=== PATIENT | male | born 1940 | race Caucasian/White ===

== ENCOUNTER → 2016-06-01 | Outpatient (CLI) | payer OTHER ==
[~2016-06-01] MED LIST: ADVIN25/60 INH; ASPI81TA28 PO; CHOL1000 PO; CLBCRM30 EXT; CLOB-77 TOP; DOXA2TAB PO; DOXY1TAB6 PO; Doxazosin Mesylate PO; ESOM20CA PO; FINA5TAB PO; LISI-725 PO; LSN25 PO; METH-589 PO; MOME200A INH; NAPR1TAB9 PO; OXYC-57 PO; PANT40TA PO; PRAV80TA2 PO; ROSU20TA PO; TAMS0.4C38 PO
[2016-06-01 15:20] VITALS: BP 137/82; PULSE 68; TEMP 36.6; O2SAT 97
== END | disposition home or self-care (01) ==
LOC: C.ONC 14:24
PROVIDERS: ATTEND Radiology Radiation Oncology
DX: C61 Malignant neoplasm of prostate (principal)

== ENCOUNTER → 2016-07-11 | Outpatient (CLI) | payer OTHER ==
[~2016-07-11] MED LIST changes: -CLOB-77 TOP; -Doxazosin Mesylate PO
--- NOTE | 2016-07-11 07:59 | DIAGNOSTIC IMAGING REPORT ---
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 COMPARISON: 02/07/2016 FINDINGS: Stable postoperative changes of a left lower lobectomy. No evidence for residual or recurrent disease. Lungs currently are considered clear. No significant parenchymal nodular pathology. Limited evaluation the upper abdomen is unremarkable. Degenerative changes of the thoracic spine are noted. IMPRESSION: Stable postoperative evaluation of the chest. No evidence for new interval or recurrent disease Electronically signed by: Aden Hammer M.D. 07/11/2016 7:57 AM Dictated Date/Time: 07/11/2016 7:54 AM
== END | disposition home or self-care (01) ==
LOC: C.CTS 07:30
PROVIDERS: ATTEND Internal Medicine Pulmonary Disease
DX: C34.90 Malignant neoplasm of unspecified part of unspecified bronchus or lung (principal)

== ENCOUNTER → 2016-10-27 | Outpatient (CLI) | payer OTHER ==
[~2016-10-27] MED LIST changes: +CLR10 PO; -LSN25 PO; +POLYSOL4 OP; +calcium PO
[2016-10-27 12:51] LABS: THYROID STIMULATING HORMONE 1.43 uIu/ml (0.300-4.500)
== END | disposition home or self-care (01) ==
LOC: C.LAB 09:59
PROVIDERS: ATTEND Internal Medicine Endocrinology, Diabetes & Metabolism
DX: E05.90 Thyrotoxicosis, unspecified without thyrotoxic crisis or storm (principal)

== ENCOUNTER → 2016-10-31 | Outpatient (CLI) | payer OTHER ==
[~2016-10-31] MED LIST changes: -CLR10 PO; -POLYSOL4 OP; -calcium PO
[2016-10-31 14:32] VITALS: BP 153/75; PULSE 73; TEMP 37.3; O2SAT 95
--- NOTE | 2016-10-31 16:10 | Radiation Oncology Follow-Up ---
Radiation Oncology Follow-Up Date of Visit Oct 31, 2016. Reason For Visit One-month follow-up in cancer survivorship care plan Radiation Completion Date Hypo - 09/28/16 Diagnosis (1) Prostate cancer Status: Acute Onset Date: 03/15/2016 Location: right lobe of the prostate Histology Subtype: adenocarcinoma Stage: ll Permanent Comment: History of benign prostatic hypertrophy on Avodart Rising PSA to 2.310 which equals 4.6 to Status post ultrasound-guided biopsies 03/15/2016 [place] 4+3 Prostate volume 45.5 Prostate density 0.101 Status post completion of radiation therapy 09/28/2016. He received 7000 cGy utilizing hypo-fractionation Last Edited By: Peg Vann on October 11, 2016 10:14 History of Present Illness Mr. Leonardo is a 75-year-old male who is without a family history of prostate cancer. He has been followed with screening prostate-specific antigens. In September 2009 his prostate-specific antigen was elevated at 4.47. This was repeated in November 2009 at 3.48. The patient was subsequently started on initially Avodart and more recently finasteride. His prostate-specific antigen has responded as anticipated. In May 2010 prostate-specific antigen was 1.49. In November 2010 prostate-specific antigen was 1.04. In September 2011 prostate-specific antigen was 1.32 and in December 2012 1.36. His prostate-specific antigen in September 2013 was 1.59 and in December 2014 1.99. His most recent prostate-specific antigen on 12/13/2015 was 2.31. Since starting his Avodart/finasteride all subsequent prostate-specific antigens needed to be doubled. His prostate-specific antigen therefore went from 4.0 in December 2014 to 4.6 in December 2015. Because of this change Dr. Mccurdy discussed ultrasound-guided biopsies with the patient. During this time the patient has had additional medical issues. He is been diagnosed with a superficial skin lesion that according to the patient is rare and treated with phototherapy. He is under the care of Dr. Gomez from [facility] and is followed every 4 months. He has been receiving therapy for the past several years with his latest treatment in October of this year. The rash initially developed over the groin and abdomen but could appear anywhere. He has had no recurrence of rash since his latest treatment. Patient was also noted to have a lung lesion initially identified on scans in 2011. On April 18, 2012 the patient was noted to have a nodular density lateral to the left lower lobe pulmonary artery measuring 5-6 mm that was stable. In November 2014 a left lower lobe nodule was noted measuring 2.2 cm which had increased compared to prior studies from 2011. A bronchoscopy was performed on 11/24/2014. No endobronchial mass was noted. Navigational bronchoscopy with biopsies of the left lower lobe lung nodule was performed. Bronchial brushings were benign. Case: [id number]. Bronchial washings were benign. Case: [id number]. Transbronchial biopsies of the left lower lobe lesion was also benign. Case: [id number]. Despite the negative biopsy with evidence of an enlarging lesion surgical removal was recommended. Dr. Ciro falcon performed a left video-assisted thorascopic surgery with a wedge resection of a left lower lobe lesion and subsequent left thoracotomy with left lower lobectomy and node dissection. This was performed on 12/22/2014. This revealed a poorly differentiated malignant neoplasm located within the wedge biopsy and subsequent wedge resection. The subsequent left lower lobectomy showed no residual tumor. 6 left level IX lymph nodes were benign and 5 lobar lymph nodes were benign. Aortopulmonary window excision revealed 5 benign lymph nodes. Case: [id number]. This case was sent for pathologic review the [facility]. 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 Pathology [id number]. Given the pathologic findings and histologic findings no adjuvant chemotherapy or radiation was recommended. Patient however was followed. A staging PET scan was performed on 01/25/2015. This showed a small left pleural effusion with mild FDG uptake favoring postoperative change. Interval left lower lobectomy noted with no FDG avid or suspicious pulmonary nodules. FDG uptake associated with left posterior chest wall consistent with postoperative changes. 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 Subsequent follow-up CT scans in July 2015 and more recently on 02/07/2016 shows no evidence of recurrent disease. Patient did agree with recommendation for ultrasound-guided prostate biopsies and was performed on 03/15/2016. A total of 14 biopsies were taken. All biopsies were benign with the exception of the right mid gland were one of 2 biopsies were positive for an adenocarcinoma [place] grade 4+3 involving 15% of the core tissue sample with no perineural invasion identified. Case: [id number]. The patient is reviewing his treatment options but would like to consider the possibility of active surveillance. Dr. Mccurdy was kind enough to ask us to see the patient to discuss treatment options with this patient. It is for this reason the patient is seen in referral. He completed radiation therapy D the 2016. He received 7000 cGy utilizing hypo-fractionation. Interim History He's been doing well over the past month. He gives an AUA score of 8. His score at the end of treatment was 12. He does have Flomax. He is not taking it on a regular basis. He states he takes this whenever he knows he is going to be traveling or staying out for a long period of time. She also continues on his Avodart. He stated he plans to discuss the Avodart with Dr. Mccurdy at his next visit in November. He completed and expanded prostate cancer index composite for clinical practice and gave a score of one of 12 in urinary incontinence symptoms. He gave a score of 4 of 12 urinary irritation symptoms. He gave a score of 0 of 12 and bowel symptoms. He gave a score of 9 of 12 and sexual symptoms. He gave a score of one of 12) hormonal vitality symptoms. His total was 15 of 60. He stated he had an ultrasound a checkup in his previous stent placement. He has a history of abdominal aortic aneurysm. He stated that the building energy retrofit technician told him his heart was irregular. Allergies Coded Allergies: Adhesives (Verified Allergy, Mild, RASH, 02/16/15) Home Medications Scheduled Aspirin (Aspirin Ec), 81 MG PO DAILY Cholecalciferol (Vitamin D3), 1 TAB PO QAM Clobetasol Propionate (Clobetasol Propionate Cream 0.05%), 1 APPLN EXT DAILY Doxazosin Mesylate (Cardura), 3 MG PO HS Doxycycline Hyclate (Doxycycline Hyclate), 50 MG PO QAM Esomeprazole Magnesium (Nexium), 20 MG PO BID Finasteride (Proscar), 1 TAB PO HS Lisinopril (Zestril), 10 MG PO DAILY Methimazole (Methimazole ), 5 MG PO QAM Mometasone Furoate-Formoterol (Dulera 200/5 Mcg), 2 PUFFS INH BID Naproxen (Aleve), 220 MG PO BID Pravastatin Sodium (Pravastatin Sodium), 1 TAB PO HS Review of Systems Gastrointestinal: Symptoms: WNL Oral: Symptoms: No Problems Respiratory: Symptoms: WNL, SOB With Exertion Urinary: Symptoms: WNL, Nocturia Comments: Proscar, Nocturia x 2, freq q 1-2hr daily, Urgency, See AUA Skin: Symptoms: No Problems Physical Exam Vital Signs Date Time Temp Pulse Resp B/P (MAP) Pulse Ox O2 Delivery O2 Flow Rate FiO2 10/31/16 14:32 37.3 73 16 153/75 95 Fatigue: None General Appearance: no apparent distress Eyes: normal inspection, EOMI ENT: normal ENT inspection, hearing grossly normal Respiratory/Chest: lungs clear, no respiratory distress, no accessory muscle use Cardiovascular: regular rate, rhythm, no gallop, no murmur Extremities: no pedal edema Neurologic/Psychiatric: no motor/sensory deficits, alert, normal mood/affect Skin: warm/dry Laboratory Studies Test 10/27/16 10:02 10/31/16 14:48 Thyroid Stimulating Hormone (TSH) 1.430 uIu/ml (0.300-4.500) Free Thyroxine 0.95 ng/dl (0.80-1.60) Prostate Specific Antigen 1.560 ng/ml (0.000-4.000) Assessment & Plan Plan: A PSA was drawn today. He was notified as the results. He'll keep his appointment with Dr. Mccurdy in November. We discussed the episode of irregular heartbeat. He is seeing Dr. Donnelly next week. I recommended that the results of his test he discussed. If there was an irregularity this would need to be followed up by his undercover cop. Today his heart was regular. He is going to discuss the Avodart with Dr. Mccurdy. He is not taking the Flomax on a regular basis. We asked him to return to our office in 6 months. Today we completed a cancer survivorship care plan. A copy of the document was given to the patient. Total Time In Follow-Up I spent 20 minutes speaking to the patient and performing examination. I spent 20 minutes reviewing information, preparing the survivorship document, and completing this note. Copy To Reji Mccurdy M.D.; Gustavo Holland, DO; Filomena Fishman C.R.N.Marlen.; Andrés Donnelly M.D.
== END | disposition home or self-care (01) ==
LOC: C.ONC 14:27
PROVIDERS: ATTEND Physician Assistant Medical
DX: Z08 Encounter for follow-up examination after completed treatment for malignant neoplasm (principal); Z92.3 Personal history of irradiation; Z85.46 Personal history of malignant neoplasm of prostate

== ENCOUNTER → 2017-01-11 | Day surgery (SDC) | payer OTHER ==
--- NOTE | 2017-01-10 11:49 | DIAGNOSTIC IMAGING REPORT ---
CHEST 2 VIEWS ROUTINE HISTORY: 76 years-old Male K40.90 Right inguinal hernia COMPARISON: Portable chest radiograph 12/25/2014, CT chest 07/11/2016 TECHNIQUE: Frontal and lateral views of the chest FINDINGS: Cardiac silhouette is within normal limits. Post surgical changes are again seen compatible with patient history of prior left lower lobectomy. There is atherosclerosis of the aorta without pneumothorax, pleural effusion or focal airspace consolidation. The bones are grossly intact. IMPRESSION: 1. No acute cardiopulmonary process. 2. Post surgical changes compatible with patient history of prior left lower lobectomy. The above report was generated using voice recognition software. It may contain grammatical, syntax or spelling errors. Electronically signed by: Juan Howe M.D. 01/10/2017 11:48 AM Dictated Date/Time: 01/10/2017 11:47 AM
[2017-01-10 12:15] LABS: BASO % 0.1 %; BASO ABS # 0.01 K/uL (0-0.2); COMPLETE YES; EOS % 1.1 %; HEMATOCRIT 39.4 % (42-52); IG% 0.4 %; LYMPH % 9.3 %; LYMPH ABS # 0.66 K/uL (1.2-3.4); MEAN CELL VOLUME 94.3 fL (80-100); MEAN CORPUSCULAR HEMOGLOBIN 30.9 pg (25-34); MEAN CORPUSCULAR HGB CONC 32.7 g/dl (32-36); MEAN PLATELET VOLUME 9.2 fL (7.4-10.4); NEUT % 78.1 %; PLATELET COUNT 206 K/uL (130-400); RED BLOOD COUNT 4.18 M/uL (4.7-6.1); WHITE BLOOD COUNT 7.06 K/uL (4.8-10.8)
[2017-01-10 13:29] LABS: BLOOD UREA NITROGEN 15 mg/dl (7-18); BUN/CREATININE RATIO 16.2 (10-20); CALCIUM 9.4 mg/dl (8.5-10.1); CARBON DIOXIDE 30 mmol/L (21-32); CHLORIDE 105 mmol/L (98-107); CREATININE 0.94 mg/dl (0.60-1.40); GLUCOSE 95 mg/dl (70-99); SODIUM 141 mmol/L (136-145)
[~2017-01-11] VITALS: Ht 182.9 cm; Wt 88.0 kg
[~2017-01-11] MED LIST changes: +ATROPINE SULFATE 0.1 MG/ML 5ML SYR IV PRN; +BACITRACIN 50000 UNIT VIAL ONE; +BUPIVACAINE 0.5 % 5 MG/1 ML MPF 30ML VIAL ONE; +DEXAMETHASONE SOD INJ 4 MG/ML VIAL ONE; +EpHEDrine SULFATE INJ 50 MG/ML AMP IV PRN; +FENTANYL CITRATE INJ 50 MCG/1 ML 2 ML VIAL IV PRN; +FENTANYL CITRATE INJ 50 MCG/1 ML 2 ML VIAL ONE; +FLUMAZENIL 0.1 MG/1 ML 10 ML VIAL IV PRN; +HYDROmorphone INJ 2 MG/ML SYR/VIAL IV PRN; +LABETALOL HCL IV 5 MG/ML 20ML IV PRN; +LACTATED RINGER'S 1000ML 1,000 ML IV SCH; +LIDOCAINE HCL 2% 2 ML VIAL (20MG/ML) ONE; +MEPERIDINE HCL 25 MG/ML CARP IV PRN; +MIDAZOLAM HCL 1 MG/ML 2ML VIAL ONE; +NALOXONE HCL 0.4 MG/1 ML VIAL/CARP IV PRN; +ONDANSETRON INJ 2 MG/ML 2 ML VIAL IV PRN; +OXYCODONE/ACETAMINOPHEN 5-325 TAB PO PRN; +PHENYLEPHRINE 100MCG/ML 5ML SYR IV PRN; +PROPOFOL IV EMULSION 10 MG/ML 20 ML VIAL IV ONE; +SODIUM CHLORIDE 0.9% 1000ML 1,000 ML IV SCH
[2017-01-11 05:35] VITALS: BP 184/77; PULSE 69; TEMP 36.8; O2SAT 95; Ht 182.9 cm; Wt 88.0 kg
--- NOTE | 2017-01-11 06:28 | History & Physical Bridge Note ---
H&P Re-Evaluation Bridge Note: I have examined the patient, reviewed the History & Physical and in the interval since the performance of the History & Physical I have noted the following changes of clinical significance: No changes noted pt marked bedside nurses report lump posterior right chest feels like a soft tissue mass lipoma? scheduled for f/u ct scan chest soon
--- NOTE | 2017-01-11 08:12 | Discharge Instructions ---
Discharge Instructions Date of Service Jan 11, 2017. Admission Reason for Admission: Right Inguinal Hernia Discharge Discharge Diagnosis / Problem: Right Inguinal Hernia Discharge Goals Goal(s): Decrease discomfort, Improve function Activity Recommendations Activity Limitations: as noted below Lifting Limitations: no more than 10 pounds Exercise/Sports Limitations: until after follow-up appointment May Resume Sexual Activity: after follow-up appointment Shower/Bathe: tomorrow Driving or Machine Use: resume 3 days after discharge . Instructions / Follow-Up Instructions / Follow-Up Please follow-up with nursing in 1 week to have your rashaun removed. Call the office at [phone] to make an appointment if you do not have one already. It is recommended to place an ice bag on the surgical area for the next 24 hours. This will help with swelling. Please do not place the bag of ice directly on the surgical incision. Please call the office with any questions or concerns. Current Hospital Diet Patient's current hospital diet: Discharge Diet Recommended Diet: Regular Diet Procedures Procedures Performed: Open Right Inguinal Hernia Repair with Marlex Mesh Pending Studies Studies pending at discharge: yes List of pending studies: Pathology report. Medical Emergencies . Who to Call and When: Medical Emergencies: If at any time you feel your situation is an emergency, please call 911 immediately. . Non-Emergent Contact Non-Emergency issues call your: Primary Care Provider, Surgeon Call Non-Emergent contact if: temperature is above 101.5, your pain is not controlled, wound has increased drainage, wound has increased redness . "Provider Documentation" section prepared by Edwina Merrill. . VTE Core Measure Inpt VTE Proph given/why not?: SCD's [place] Drug Monitoring Program Search Results: patient reviewed within database, no issues identified
--- NOTE | 2017-01-11 08:13 | [facility] Operative Report ---
Operative Report Operative Date Jan 11, 2017. Pre-Operative Diagnosis Right Inguinal Hernia Post-Operative Diagnosis Same as preoperative(indirect and lipoma cord) Procedure(s) Performed Open Right Inguinal Hernia Repair with Martamie Mesh Surgeon Dr. Carlton Mckeon Nuclear Engineering Technician Surgeon(s) Tanner Merrill PA-C Estimated Blood Loss 1ml Findings indirect hernia and lipoma cord Specimens A.) Lipoma of the Cord, Hernia Sac Indications pain I attest to the content of the Intraoperative Record and any orders documented therein. Any exceptions are noted below.
--- NOTE | 2017-01-11 08:39 | OPERATIVE REPORT ---
DATE OF OPERATION: 01/11/2017 PREOPERATIVE DIAGNOSIS: Right inguinal hernia. POSTOPERATIVE DIAGNOSIS: Right indirect inguinal hernia, lipoma of the cord. PROCEDURE: Open repair, right indirect hernia with Marlex mesh tension free and excision lipoma of the cord. SURGEON: Dr. Mckeon. OPERATION AND FINDINGS: SUMMARY: The patient was brought into the operating room theater under general LMA anesthesia. The right lower quadrant prepped Betadine scrubbing solution and properly draped. Systemic antibiotics was given. 1% Xylocaine with epinephrine was used to infiltrate 2 fingerbreadths medial anterior superior iliac crest. An incision was made parallel to the inguinal ligament, deepened through subcutaneous tissue onto the external oblique. A few small vessels in the subQ were Bovied. The patient had some edema in the subcutaneous tissue in that area. Once we got onto the external oblique more local was used. External oblique was opened and incised along the course of its fibers, elevated, excised to the external ring. The nerve identified and avoided by placing with help of hemostats and retracted superiorly. At this point, the cord and it structures were elevated. The patient was identified to have a direct weakness, but no real direct hernia per se. The cord was placed over a Michael drain. We dissected out and identified the hernial sac which we opened and placed a finger inside. The internal ring and appeared adequate. We ligated the hernial sac with 3-0 silk and resected. The patient also had a lipoma of the cord, which we ligated 2-0 silk and resected. We brought a sheet of Marlex mesh and onlaid it with 2-0 Prolene to the symphysis pubis, shelving portion of the inguinal ligament above. We placed it on the conjoined tendon, although the patient had very weak tissue overall. We made sure we placed it significantly underneath the external oblique fascia. The internal ring was reconstructed placing the nerve along the cord structure. Once the internal ring was constructed it could only accommodate the tip of a hemostat. The wound was checked for hemostasis and appeared satisfactory. The external oblique closed with 3-0 interrupted silk, 3-0 Dexon subcutaneously, rashaun for skin edges. Dressing was applied. The procedure was tolerated well by the patient. Estimated blood loss 1.5 mL. The patient was taken to recovery room in good condition. I attest to the content of the Intraoperative Record and any orders documented therein. Any exception s are noted below.
--- NOTE | 2017-01-11 09:07 | Anesthesiology Progress Note ---
Anesthesia Post Op Note Date & Time Jan 11, 2017 at 09:07 Vital Signs Pain Intensity: 0 Vital Signs Past 12 Hours Date Time Temp Pulse Resp B/P (MAP) Pulse Ox O2 Delivery O2 Flow Rate FiO2 01/11/17 09:00 65 16 157/64 99 Nasal Cannula 2 01/11/17 08:50 67 16 156/78 99 Nasal Cannula 2 01/11/17 08:40 36.4 66 16 153/70 99 Nasal Cannula 2 01/11/17 08:30 72 16 152/63 98 Nasal Cannula 2 01/11/17 08:20 68 16 162/91 98 Oxymask 5 01/11/17 08:10 68 16 150/81 98 Oxymask 5 01/11/17 08:06 36.3 74 18 157/74 98 Oxymask 5 01/11/17 05:35 36.8 69 20 184/77 (112) 95 Room Air Notes Mental Status: alert / awake / arousable, participated in evaluation Pt Amnestic to Procedure: Yes Nausea / Vomiting: adequately controlled Pain: adequately controlled Airway Patency, RR, SpO2: stable & adequate BP & HR: stable & adequate Hydration State: stable & adequate Anesthetic Complications: no major complications apparent
[2017-01-11 09:10] VITALS: BP 190/84; PULSE 70; TEMP 36.7; O2SAT 96
[2017-01-11 09:45] VITALS: BP 174/81; PULSE 72; TEMP 36.7; O2SAT 96
== END | disposition home or self-care (01) ==
LOC: C.ACU 05:00
PROVIDERS: ATTEND Surgery
DX: K40.90 Unilateral inguinal hernia, without obstruction or gangrene, not specified as recurrent (principal); D17.6 Benign lipomatous neoplasm of spermatic cord; I25.10 Atherosclerotic heart disease of native coronary artery without angina pectoris; N40.1 Benign prostatic hyperplasia with lower urinary tract symptoms; N13.8 Other obstructive and reflux uropathy; J44.9 Chronic obstructive pulmonary disease, unspecified; I65.29 Occlusion and stenosis of unspecified carotid artery; E78.00 Pure hypercholesterolemia, unspecified; Z85.828 Personal history of other malignant neoplasm of skin; E05.90 Thyrotoxicosis, unspecified without thyrotoxic crisis or storm; M51.16 Intervertebral disc disorders with radiculopathy, lumbar region; C34.90 Malignant neoplasm of unspecified part of unspecified bronchus or lung; C61 Malignant neoplasm of prostate; Z87.891 Personal history of nicotine dependence; Z79.82 Long term (current) use of aspirin; Z79.899 Other long term (current) drug therapy

== ENCOUNTER → 2017-01-16 | Outpatient (CLI) | payer OTHER ==
[~2017-01-16] MED LIST changes: -ATROPINE SULFATE 0.1 MG/ML 5ML SYR IV PRN; -BACITRACIN 50000 UNIT VIAL ONE; -BUPIVACAINE 0.5 % 5 MG/1 ML MPF 30ML VIAL ONE; -DEXAMETHASONE SOD INJ 4 MG/ML VIAL ONE; -EpHEDrine SULFATE INJ 50 MG/ML AMP IV PRN; -FENTANYL CITRATE INJ 50 MCG/1 ML 2 ML VIAL IV PRN; -FENTANYL CITRATE INJ 50 MCG/1 ML 2 ML VIAL ONE; -FLUMAZENIL 0.1 MG/1 ML 10 ML VIAL IV PRN; -HYDROmorphone INJ 2 MG/ML SYR/VIAL IV PRN; -LABETALOL HCL IV 5 MG/ML 20ML IV PRN; -LACTATED RINGER'S 1000ML 1,000 ML IV SCH; -LIDOCAINE HCL 2% 2 ML VIAL (20MG/ML) ONE; -MEPERIDINE HCL 25 MG/ML CARP IV PRN; -MIDAZOLAM HCL 1 MG/ML 2ML VIAL ONE; -MOME200A INH; -NALOXONE HCL 0.4 MG/1 ML VIAL/CARP IV PRN; -ONDANSETRON INJ 2 MG/ML 2 ML VIAL IV PRN; -OXYC-57 PO; -OXYCODONE/ACETAMINOPHEN 5-325 TAB PO PRN; -PHENYLEPHRINE 100MCG/ML 5ML SYR IV PRN; -PRAV80TA2 PO; -PROPOFOL IV EMULSION 10 MG/ML 20 ML VIAL IV ONE; -SODIUM CHLORIDE 0.9% 1000ML 1,000 ML IV SCH
--- NOTE | 2017-01-16 08:14 | DIAGNOSTIC IMAGING REPORT ---
CT SCAN OF THE CHEST WITHOUT IV CONTRAST CLINICAL HISTORY: Follow-up lung cancer. COMPARISON STUDY: Chest CT scans dated 07/11/2016 and 08/04/2009. TECHNIQUE: CT scan of the thorax was performed from the thoracic inlet to the upper abdomen. Images are reviewed in the axial, sagittal, and coronal planes. IV contrast was not administered for this examination as per the referring clinician. A dose lowering technique was utilized adhering to the principles of ALARA. CT DOSE: 560.48 mGy.cm FINDINGS: Thyroid: Imaged portions of the thyroid gland are normal in size and attenuation. Thoracic aorta: There is atherosclerotic calcification of the thoracic aorta, which is normal in caliber and demonstrates standard 3-vessel arch anatomy. Heart: The heart is enlarged and without pericardial effusion. The coronary arteries are densely calcified. The main pulmonary arteries are dilated suggesting pulmonary artery hypertension. Lungs and pleural spaces: Mild emphysema is observed. There are postoperative changes and volume loss from left lower lobe resection. There is compensatory hyperinflation of the right lung. No pleural effusion is identified. There are patchy nodular opacities seen throughout the left lung. The right lung is clear. The trachea and central airways are clear. Mediastinum: There is no mediastinal lymphadenopathy. Teri: Not well assessed without IV contrast. Axillae: There is no axillary lymphadenopathy. Upper abdomen: An aortic stent graft is partially visualized. No adrenal lesion is seen. Skeletal structures: The skeletal structures are osteopenic. Degenerative change and hyperkyphosis are noted in the thoracic spine. Postoperative change is noted in the left sided ribs. No lytic or blastic bony lesions are seen. Soft tissues: There is a new 2.6 x 4.2 cm hyperdense lesion seen in the right paraspinous musculature on axial image #233. This is located at the level of T10-T11. IMPRESSION: 1. Cardiomegaly and emphysema. 2. There are postoperative changes from left lower lobe resection. 3. There are patchy nodular opacities scattered throughout the left lung. These were not seen on 07/11/2016 and likely represent a mild infectious/inflammatory pneumonitis. Clinical correlation will be required. 3 month follow-up is recommended to document resolution. 4. There is a new 4.2 cm hyperdense and heterogeneous lesion seen in the right paraspinous musculature at the level of T10-T11, which was not seen on 07/11/2016. Although this could potentially represent a small hematoma, metastatic disease is not excluded. Clinical correlation will be required and this should also be reassessed at follow-up. 5. Additional findings as above. Electronically signed by: Phill Stein M.D. 01/16/2017 8:13 AM Dictated Date/Time: 01/16/2017 8:01 AM
== END | disposition home or self-care (01) ==
LOC: C.CTS 07:40
PROVIDERS: ATTEND Internal Medicine Pulmonary Disease
DX: C34.90 Malignant neoplasm of unspecified part of unspecified bronchus or lung (principal); R91.1 Solitary pulmonary nodule; I51.7 Cardiomegaly; J43.9 Emphysema, unspecified; R91.8 Other nonspecific abnormal finding of lung field

== ENCOUNTER → 2017-01-19 | Outpatient (CLI) | payer OTHER ==
[2017-01-19 09:51] LABS: ESTIMATED AVERAGE GLUCOSE 114 mg/dl; HA1C FLAG Normal (Normal)
[2017-01-19 10:14] LABS: ALT/SGPT 13 U/L (12-78); AST/SGOT 12 U/L (15-37); BLOOD UREA NITROGEN 14 mg/dl (7-18); BUN/CREATININE RATIO 13.8 (10-20); CARBON DIOXIDE 30 mmol/L (21-32); CHLORIDE 106 mmol/L (98-107); CREATININE 0.99 mg/dl (0.60-1.40); GLUCOSE 105 mg/dl (70-99); POTASSIUM 3.7 mmol/L (3.5-5.1); SODIUM 140 mmol/L (136-145)
[2017-01-19 10:17] LABS: ALB/GLOB RATIO 0.9 (0.9-2); ALKALINE PHOSPHATASE 76 U/L (45-117); CHOLESTEROL 85 mg/dl (0-200); CHOLESTEROL/HDL RATIO 2.2; HDL CHOLESTEROL 39 mg/dl; LDL CHOLESTEROL CALCULATED 28 mg/dl; TRIGLYCERIDES 92 mg/dl (0-150); VERY LOW DENSITY LIPOPROT CALC 18 mg/dl
== END | disposition home or self-care (01) ==
LOC: C.LAB 09:05
PROVIDERS: ATTEND Nurse Practitioner Family
DX: E78.5 Hyperlipidemia, unspecified (principal); I10 Essential (primary) hypertension; R73.03 Prediabetes

== ENCOUNTER → 2017-01-22 | Outpatient (CLI) | payer OTHER | END | disposition home or self-care (01) | LOC: C.PATHSPEC 13:51 | PROVIDERS: ATTEND Surgery | DX: C49.6 Malignant neoplasm of connective and soft tissue of trunk, unspecified (principal) ==

== ENCOUNTER → 2017-01-31 | Outpatient (CLI) | payer OTHER ==
--- NOTE | 2017-01-31 09:26 | DIAGNOSTIC IMAGING REPORT ---
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 TECHNIQUE: PET/CT was performed from the base of the skull through the proximal thighs following the intravenous administration of 14.054 mCi of F18-FDG. Blood glucose level 115 mg/dL. The injection was performed at 6:57 AM and imaging began at 7:[address] was performed for attenuation correction purposes and anatomic localization. COMPARISON: 01/25/2015 CT DOSE (mGy.cm): The estimated cumulative dose is 1156.30. FINDINGS: Head and neck: There is no FDG-avid disease or significant lymphadenopathy in the imaged portions of the head and the neck. Chest: No axillary, mediastinal, or hilar lymphadenopathy. Mild enlargement of the heart, unchanged. Coronary artery and aortic valve calcification. No pleural or pericardial effusion. Postsurgical changes of left lower lobe resection. Minimal subpleural reticulation along the lateral lingula likely posttreatment change. No air-space disease or suspicious lung nodule. No FDG avid lesion in the chest. Abdomen and pelvis: Below the diaphragm, tracer is distributed physiologically in the gastrointestinal and genitourinary tracts. There is no significant lymphadenopathy and no FDG-avid disease. Fiducial markers noted in the prostate likely indicating prior external beam radiation treatment of prostate cancer. 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 Aortobiiliac stent graft in place for the infrarenal abdominal aortic aneurysm. The aneurysm sac now measures 4.6 cm, previously 4.2 cm. 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 Musculoskeletal: Posttraumatic deformity of the right superior and inferior pubic rami and pubic symphysis. Degenerative changes of the spine. No FDG avid osseous lesion. Hyperdense FDG avid 3.0 cm lesion in the right paraspinal musculature at the level of T10-11 (max SUV 6.5). Previously noted mild FDG activity within the chest wall musculature along the left posterolateral aspect has resolved, likely postsurgical change. Interval development of a photopenic fluid collection in the superficial soft tissues of the right lower quadrant. Subjacent mild FDG avidity of the right abdominal wall musculature (max SUV 2.7). An overlying incision site is suggested. These findings are not present on prior exam. IMPRESSION: 1. Interval development of an FDG avid intramuscular lesion in the right paraspinal musculature at the level of T10-11, consistent with progression of disease. 2. Postsurgical changes of left lower lobectomy. No lymphadenopathy or recurrent disease in the lungs. 3. Slight interval increased size of the infrarenal abdominal aortic aneurysm sac, which now measures 4.6 cm, previously 4.2 cm. 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 Aortobiiliac stent graft in place. 4. Photopenic fluid collection in the subcutaneous tissue of the right lower quadrant with subjacent mild FDG avidity of the right abdominal wall musculature may suggest interval postsurgical change. Electronically signed by: Song Beatty M.D. 01/31/2017 9:24 AM Dictated Date/Time: 01/31/2017 8:56 AM
== END | disposition home or self-care (01) ==
LOC: C.PET 06:37
PROVIDERS: ATTEND Surgery
DX: C34.90 Malignant neoplasm of unspecified part of unspecified bronchus or lung (principal); C79.9 Secondary malignant neoplasm of unspecified site

== ENCOUNTER → 2017-02-02 | Outpatient (CLI) | payer OTHER ==
[2017-02-02 09:13] VITALS: BP 110/63; PULSE 81; TEMP 36.7; O2SAT 95
--- NOTE | 2017-02-02 14:20 | Radiation Oncology Consult ---
Radiation Oncology Consult Date / Reason Feb 02, 2017. Physicians Primary Care Provider: SONYA Velez Medical Oncologist: Dr. Jona Warren Radiation Oncologist: Dr. Vamshi Warren Surgeon: Dr. Carlton Mckeon Other Providers: Dr. Andrés Mccurdy Diagnosis (1) Prostate cancer Onset Date: 03/15/2016 Permanent Comment: History of benign prostatic hypertrophy on Avodart Rising PSA to 2.310 which equals 4.6 to Status post ultrasound-guided biopsies 03/15/2016 Kayode 4+3 Prostate volume 45.5 Prostate density 0.101 Status post completion of radiation therapy 09/28/2016. He received 7000 cGy utilizing hypo-fractionation Last Edited By: Peg Vann on October 11, 2016 10:14 (2) Lesion of lung Stage: IV Permanent Comment: -CT Angio - 10/30/14 - Increase in pulmonary nodule in LLL -CT Thorax - 11/23/14 - 2.2 cm circumscribed LLL nodule -Bronchial washings/biopsies of LLL - 11/24/14 - negative -LLL Lobectomy/mediastinal LND - 12/22/14 - poorly diff spindle cell neoplasm - [id number] -PET/CT - 01/25/2015 - no evidence of distant metastatic disease -CT Thorax - 01/16/17 - new 4.2 cm lesions in right paraspinous musculature -Incisional biopsy of right posterior chest mass - 01/22/2017 - consistent with lung primary, poorly diff spindle cell neoplasm -PET/CT - FDG uptake in right posterior chest mass, otherwise negative for metastatic disease Last Edited By: Vamshi Warren on Feb 02, 2017 13:59 History of Present Illness Today, Mr. Leonardo was accompanied by his and daughter. Mr. Leonardo is a 76-year-old gentleman with a history of prostate cancer treated with radiation therapy (noted above) which completed in September 2016. 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 The patient underwent a left lower lobectomy and mediastinal lymph node dissection on 12/22/2014 (Dr. 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 Dr. Mckeon was able to achieve negative margins and there was no evidence of lymph node involvement so the patient was followed with routine observation; the patient did undergo PET/CT staging which did not reveal any evidence of distant metastatic disease. More recently, the patient did undergo a hernia repair procedure by Dr. Mckeon on 01/11/2017. Prior to his procedure, he did note a mass in his right lower back that was causing him discomfort. Following the completion of his procedure, the patient did have a CT thorax on 01/16/2017 which revealed a "a new 4.2 cm hyperdense and heterogeneous lesion seen in the right paraspinous musculature at the level of T10-T11, which was not seen on 07/11/2016. Although this could potentially represent a small hematoma, metastatic disease is not excluded." Dr. Mckeon did perform an incisional biopsy of the right mid back lesion on 01/22/2017 which revealed metastatic poorly differentiated malignant neoplasm consistent with his lung malignancy diagnosed in 2014. The patient underwent a PET/CT scan on 01/31/2017 which revealed: "IMPRESSION: 1. Interval development of an FDG avid intramuscular lesion in the right paraspinal musculature at the level of T10-11, consistent with progression of disease. 2. Postsurgical changes of left lower lobectomy. No lymphadenopathy or recurrent disease in the lungs. 3. Slight interval increased size of the infrarenal abdominal aortic aneurysm sac, which now measures 4.6 cm, previously 4.2 cm. Slight interval increased size of the left common iliac artery aneurysm , now measuring 3.3 cm, previously 3.1 cm. Aortobiiliac stent graft in place. 4. Photopenic fluid collection in the subcutaneous tissue of the right lower quadrant with subjacent mild FDG avidity of the right abdominal wall musculature may suggest interval postsurgical change." We are now seeing the patient in follow-up evaluation to discuss his previous imaging and biopsy results. He did note today during his evaluation that he does have some discomfort in his back were did have his biopsy done. He will be seeing Dr. Mckeon next Sunday. Pacemaker Hx Pacemaker: No Past History Past Medical/Surgical History: Male Genitourinary Prob., Cancer, High Cholesterol, Hypertension Social History Smoking Status: Former Smoker Hx Tobacco Use In Past Year?: Yes (Quit 2000 - Smoked for 20 yrs 3/4 pack/day ) Quit Date: Feb 18, 2001 Do You Dip or Chew Tobacco: No Hx Alcohol Use: Yes (Rarely ) Hx Substance Use : No Allergies Coded Allergies: Adhesives (Verified Allergy, Mild, RASH, 01/11/17) Latex (Verified Allergy, Unknown, UNKNOWN REACTION, 01/11/17) PER RECORDS Home Medications Scheduled Aspirin (Aspirin Ec), 81 MG PO DAILY Cholecalciferol (Vitamin D3), 1 TAB PO QAM Clobetasol Propionate (Clobetasol Propionate Cream 0.05%), 1 APPLN EXT DAILY Doxazosin Mesylate (Cardura), 3 MG PO HS Doxycycline Hyclate (Doxycycline Hyclate), 50 MG PO QAM Finasteride (Proscar), 1 TAB PO HS Fluticasone Prop/Salmeterol (Advair Diskus 250/50 60 Dose), 2 PUFFS INH BID Lisinopril (Zestril), 10 MG PO DAILY Methimazole (Methimazole ), 5 MG PO QAM Naproxen (Aleve), 220 MG PO BID Pantoprazole (Protonix), 40 MG PO DAILY Rosuvastatin Calcium (Crestor), 20 MG PO QPM Tamsulosin Hcl (Flomax), 0.4 MG PO DAILY Review of Systems Extremities: Hx Deep Vein Thrombosis: No Eyes: Hx Cataracts: Yes (starting to developing - being monitor ) Respiratory: Comments: PND past couple months with OTC med relief Physical Exam ECOG Performance Status: 0 Height: (Feet) (Inches) (Centimeters) (Meters) Weight: 188 (Pounds) 7.9 (Ounces) 85.500 (Kilograms) 34597.000 (Grams) Date Time Temp Pulse Resp B/P (MAP) Pulse Ox O2 Delivery O2 Flow Rate FiO2 02/02/17 09:13 36.7 81 16 110/63 95 General Appearance: WD/WN Head: normocephalic Eyes: normal inspection, PERRL ENT: normal ENT inspection Neck: supple, no adenopathy Respiratory/Chest: lungs clear, normal breath sounds, no respiratory distress, no accessory muscle use, + pertinent finding (Raised, erythematous mass along the right posterior thoracic chest wall. Sutures in place. No bleeding. Mild tender to palpation. 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 SEE COMMENT. COMMENT: Sections show a markedly atypical spindle cell neoplasm. The tumor appears similar to the patients malignant lung tumor resected in 2014 ([id number] ). A panel of immunoperoxidase stains was performed. The tumor cells are strongly and diffusely positive for vimentin and are focally positive for CD56. The tumor cells are negative for pankeratin, CK903, S100, smooth muscle actin and the vascular markers CD31 and CD34. This pattern of staining is similar to the previous lung tumor which was also positive for vimentin and CD56 and negative for numerous other markers. Given the pattern of staining, that tumor could not be further classified. While this tumor appears somewhat more vascular, the vascular markers are again negative. In summary, the biopsies show a malignant neoplasm that is consistent with the metastasis from the patients previous lung tumor. As noted with the lung tumor , precise classification is not possible, given the lack of differentiation. As with the lung tumor, the staining for CD56 could suggest a malignant peripheral nerve sheath tumor. An undifferentiated pleomorphic sarcoma is also possible. 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 TECHNIQUE: PET/CT was performed from the base of the skull through the proximal thighs following the intravenous administration of 14.054 mCi of F18-FDG. Blood glucose level 115 mg/dL. The injection was performed at 6:57 AM and imaging began at 7:[address] was performed for attenuation correction purposes and anatomic localization. COMPARISON: 01/25/2015 CT DOSE (mGy.cm): The estimated cumulative dose is 1156.30. FINDINGS: Head and neck: There is no FDG-avid disease or significant lymphadenopathy in the imaged portions of the head and the neck. Chest: No axillary, mediastinal, or hilar lymphadenopathy. Mild enlargement of the heart, unchanged. Coronary artery and aortic valve calcification. No pleural or pericardial effusion. Postsurgical changes of left lower lobe resection. Minimal subpleural reticulation along the lateral lingula likely posttreatment change. No air-space disease or suspicious lung nodule. No FDG avid lesion in the chest. Abdomen and pelvis: Below the diaphragm, tracer is distributed physiologically in the gastrointestinal and genitourinary tracts. There is no significant lymphadenopathy and no FDG-avid disease. Fiducial markers noted in the prostate likely indicating prior external beam radiation treatment of prostate cancer. 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 Aortobiiliac stent graft in place for the infrarenal abdominal aortic aneurysm. The aneurysm sac now measures 4.6 cm, previously 4.2 cm. 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 Musculoskeletal: Posttraumatic deformity of the right superior and inferior pubic rami and pubic symphysis. Degenerative changes of the spine. No FDG avid osseous lesion. Hyperdense FDG avid 3.0 cm lesion in the right paraspinal musculature at the level of T10-11 (max SUV 6.5). Previously noted mild FDG activity within the chest wall musculature along the left posterolateral aspect has resolved, likely postsurgical change. Interval development of a photopenic fluid collection in the superficial soft tissues of the right lower quadrant. Subjacent mild FDG avidity of the right abdominal wall musculature (max SUV 2.7). An overlying incision site is suggested. These findings are not present on prior exam. IMPRESSION: 1. Interval development of an FDG avid intramuscular lesion in the right paraspinal musculature at the level of T10-11, consistent with progression of disease. 2. Postsurgical changes of left lower lobectomy. No lymphadenopathy or recurrent disease in the lungs. 3. Slight interval increased size of the infrarenal abdominal aortic aneurysm sac, which now measures 4.6 cm, previously 4.2 cm. 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 Aortobiiliac stent graft in place. 4. Photopenic fluid collection in the subcutaneous tissue of the right lower quadrant with subjacent mild FDG avidity of the right abdominal wall musculature may suggest interval postsurgical change. CT SCAN OF THE CHEST WITHOUT IV CONTRAST - 01/16/17 CLINICAL HISTORY: Follow-up lung cancer. COMPARISON STUDY: Chest CT scans dated 07/11/2016 and 08/04/2009. TECHNIQUE: CT scan of the thorax was performed from the thoracic inlet to the upper abdomen. Images are reviewed in the axial, sagittal, and coronal planes. IV contrast was not administered for this examination as per the referring clinician. A dose lowering technique was utilized adhering to the principles of ALARA. CT DOSE: 560.48 mGy.cm FINDINGS: Thyroid: Imaged portions of the thyroid gland are normal in size and attenuation. Thoracic aorta: There is atherosclerotic calcification of the thoracic aorta, which is normal in caliber and demonstrates standard 3-vessel arch anatomy. Heart: The heart is enlarged and without pericardial effusion. The coronary arteries are densely calcified. The main pulmonary arteries are dilated suggesting pulmonary artery hypertension. Lungs and pleural spaces: Mild emphysema is observed. There are postoperative changes and volume loss from left lower lobe resection. There is compensatory hyperinflation of the right lung. No pleural effusion is identified. There are patchy nodular opacities seen throughout the left lung. The right lung is clear. The trachea and central airways are clear. Mediastinum: There is no mediastinal lymphadenopathy. Teri: Not well assessed without IV contrast. Axillae: There is no axillary lymphadenopathy. Upper abdomen: An aortic stent graft is partially visualized. No adrenal lesion is seen. Skeletal structures: The skeletal structures are osteopenic. Degenerative change and hyperkyphosis are noted in the thoracic spine. Postoperative change is noted in the left sided ribs. No lytic or blastic bony lesions are seen. Soft tissues: There is a new 2.6 x 4.2 cm hyperdense lesion seen in the right paraspinous musculature on axial image #233. This is located at the level of T10-T11. IMPRESSION: 1. Cardiomegaly and emphysema. 2. There are postoperative changes from left lower lobe resection. 3. There are patchy nodular opacities scattered throughout the left lung. These were not seen on 07/11/2016 and likely represent a mild infectious/inflammatory pneumonitis. Clinical correlation will be required. 3 month follow-up is recommended to document resolution. 4. There is a new 4.2 cm hyperdense and heterogeneous lesion seen in the right paraspinous musculature at the level of T10-T11, which was not seen on 07/11/2016. Although this could potentially represent a small hematoma, metastatic disease is not excluded. Clinical correlation will be required and this should also be reassessed at follow-up. 5. Additional findings as above. Assessment & Recommendations Mr. Leonardo is a 76-year-old male with a previous diagnosis of prostate cancer treated with radiation therapy in 2017 that is currently in remission. The patient also was previously diagnosed with a poorly differentiated malignant neoplasm involving the left lower lobe that was treated with a left lower lobectomy by Dr. Mckeon in December 2014 with no adjuvant therapy. More recently, the patient did presents with a right posterior chest wall mass that was biopsied by Dr. Mckeon 01/22/2017 which confirmed metastatic poorly differentiated malignant neoplasm consistent with his previous lung primary malignancy. The patient did undergo a PET/CT scan on 01/31/2017 which revealed no evidence of other distant metastatic disease beyond the right posterior chest wall mass. The patient wanted us to evaluate him and reviewing his pathology and imaging results. The patient is scheduled to see Dr. Mckeon next Sunday for postoperative evaluation and to review his results. I did review the pathology results and imaging results with the patient and his family. At this point, I have recommended a medical oncology consultation and the patient has requested Dr. Jona Warren from [facility]; the patient has been scheduled by our department for an appointment next Sunday. Additionally, I will have his case reviewed at our next multidisciplinary tumor board to get input from other clinicians including medical oncology, radiation oncology and surgery. I did review with the patient and his family that he does have an unusual primary lung cancer based on the pathology and imaging results and now has an unusual metastatic deposit in the right posterior chest wall; I explained to him that he truly has oligometastatic disease based on his previous PET/CT scan. With his clinical situation in mind, I explained to him that it may be potentially beneficial to be more aggressive and utilize both chemotherapy and radiation therapy however I would like to wait for the patient to see Dr. Jona Warren and have the case discussed in our multidisciplinary tumor board prior to making a final recommendation. With respect to his prostate cancer, I have recommended continued routine surveillance. The patient and his family were comfortable with this plan. I will call them after our multidisciplinary tumor board discussion on Sunday. There were encouraged to call me with any further questions or concerns. Total Time In Consultation I spent 30 minutes examining and counseling the patient. I spent 15 minutes completing this note. TOW MATE Copy To Reji Mccurdy M.D.; Jona Warren M.D.; Carlton Mckeon M.D.; Filomena Fishmna, C.R.N.P.; Andrés Donnelly M.D.
== END | disposition home or self-care (01) ==
LOC: C.ONC 09:52
PROVIDERS: ATTEND Physician Assistant Medical
DX: C61 Malignant neoplasm of prostate (principal)

== ENCOUNTER → 2017-04-18 | Outpatient (CLI) | payer OTHER ==
[~2017-04-18] MED LIST changes: +CLR10 PO; -ESOM20CA PO; -FINA5TAB PO; +POLYSOL4 OP; +calcium PO
--- NOTE | 2017-04-18 10:06 | DIAGNOSTIC IMAGING REPORT ---
(CHEST) THORAX WITHOUT CT DOSE: 348.02 mGy.cm CLINICAL HISTORY: 76 years-old Male with C34.90. Malignant neoplasm of bronchus. Follow-up exam. Prior left lower lobectomy TECHNIQUE: Multiaxial CT images of the chest were performed without contrast. A dose lowering technique was utilized adhering to the principles of ALARA. COMPARISON: MRI chest 02/20/2017, PET CT 01/31/2017, chest CT 01/16/2017. FINDINGS: Mildly heterogeneous thyroid without dominant nodule identified. Evaluation for adenopathy is limited without use of contrast. No pathologic adenopathy identified. Heart is upper limits of normal in size with coronary arterial and aortic annular calcifications noted. No aneurysm of the thoracic aorta identified. There is mild ectasia of the descending thoracic aorta, 3.5 cm transversely. Moderate atherosclerosis. Stent graft of the upper abdominal aorta is partially imaged. Postoperative changes from prior left lower lobectomy. There is of subsegmental pleural-parenchymal scarring are noted throughout the left lung. No pneumothorax or pleural effusion. Subsegmental subpleural reticular and groundglass opacities of the right lower lobe are noted, nicely seen on image 214 series 4. Central airways are patent without definite endobronchial lesion identified. Moderate nonspecific bilateral symmetric perinephric stranding. Probable renal vascular calcification of the right. There is a least moderate diffuse pancreatic atrophy. Bilateral gynecomastia. Heterogeneous intramuscular lesion of the right paraspinal musculature is again seen measuring approximately 3.6 x 2.0 cm on image 48 series 2. No erosion or destruction of the adjacent ribs. No suspicious lytic or blastic bony lesions to suggest bony metastasis. There is partial bony fusion involving the left sixth and seventh ribs laterally. IMPRESSION: 1. Prior left lower lobectomy. No evidence of local disease recurrence 2. Heterogeneous mass of the right paraspinal musculature is again seen, 3.6 x 2.0 cm which demonstrated hypermetabolic activity on comparison PET CT suggesting metastatic lesion. 3. No pathologic adenopathy or evidence of bony metastasis. 4. Subsegmental groundglass opacities of the basal right lower lobe suspicious for mild pneumonitis on a background of atelectasis/scarring. Electronically signed by: Juan Howe M.D. 04/18/2017 10:04 AM Dictated Date/Time: 04/18/2017 9:52 AM
== END | disposition home or self-care (01) ==
LOC: C.CTS 09:31
PROVIDERS: ATTEND Internal Medicine Pulmonary Disease
DX: C34.90 Malignant neoplasm of unspecified part of unspecified bronchus or lung (principal); R91.8 Other nonspecific abnormal finding of lung field

== ENCOUNTER → 2017-04-30 | Outpatient (CLI) | payer OTHER ==
[2017-04-26 15:07] LABS: BLOOD UREA NITROGEN 16 mg/dl (7-18); CREATININE 0.97 mg/dl (0.60-1.40)
[~2017-04-30] MED LIST changes: +OPTIRAY 320 IV PRN
--- NOTE | 2017-04-30 10:26 | DIAGNOSTIC IMAGING REPORT ---
CTA OF THE ABDOMEN AND PELVIS HISTORY: Prior abdominal aortic aneurysm repair. TECHNIQUE: Multiaxial CT images of the abdomen and pelvis performed both before and after intravenous administration of contrast including delayed sequences to evaluate the abdominal aorta. COMPARISON STUDY: Abdomen and pelvis CT 10/30/2014. FINDINGS: The patient is status post aortobiiliac stent graft repair of an abdominal aortic aneurysm. Slight increase in size in the left common iliac artery aneurysm which currently measures 3.5 cm, previously measuring 3.3 cm. There is also a small saccular right common iliac artery aneurysm measuring 13 x 7 mm. This is similar in size compared the prior study. The abdominal aortic aneurysm sac is unchanged in size measuring 4.4 x 4.4 cm. The small focal outpouching seen within the proximal posterior graft on image [id number] 136. This measures 8 x 4 mm and raises the possibility of a type III endoleak. This is new from the prior study. No change in the focal occlusion of the left common femoral artery with distal reconstitution. There is a 3.6 mm nodule within the base of the left lower lobe. Nonspecific groundglass densities within the right lower lobe which could represent atelectasis or pneumonia. Old bilateral pubic ring fractures. Old left sacral fracture. Subcentimeter hypodense lesion within the right kidney is too small to characterize. No hydronephrosis. Normal left kidney. Moderate bilateral perinephric edema, unchanged. This is likely chronic. The pancreas, gallbladder, liver, and adrenal glands are unremarkable. No retroperitoneal lymphadenopathy. No retroperitoneal hematoma. Bladder is not well-distended. Bladder wall thickening. The prostate is mildly enlarged. There are are surgical clips at the prostate gland. No definite bowel wall thickening or obstruction. Normal appendix. IMPRESSION: 1. Small focal outpouching of contrast within the proximal posterior graft which raises the possibility of a type III endoleak. However, the aneurysm sac remains stable in size measuring 4.4 cm. 2. 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 3. No change in the focal occlusion of the distal left common femoral artery with reconstitution. 4. Additional findings as described above. Electronically signed by: Humza Elise M.D. 04/30/2017 10:25 AM Dictated Date/Time: 04/30/2017 10:06 AM
== END | disposition home or self-care (01) ==
LOC: C.CTS 09:22
PROVIDERS: ATTEND Physician Assistant
DX: I71.4 Abdominal aortic aneurysm, without rupture (principal); I72.3 Aneurysm of iliac artery; I65.22 Occlusion and stenosis of left carotid artery; I70.291 Other atherosclerosis of native arteries of extremities, right leg

== ENCOUNTER → 2017-05-09 | Outpatient (CLI) | payer OTHER ==
[~2017-05-09] MED LIST changes: +CALC500C70 PO; -OPTIRAY 320 IV PRN
[2017-05-09 08:00] VITALS: BP 116/72; PULSE 76; TEMP 36.9; O2SAT 95
--- NOTE | 2017-05-09 17:04 | Radiation Oncology Follow-Up ---
Radiation Oncology Follow-Up Date of Visit May 09, 2017. Radiation Completion Date 04/11/17 Diagnosis (1) Lesion of lung Status: Acute Permanent Comment: -CT Angio - 10/30/14 - Increase in pulmonary nodule in LLL -CT Thorax - 11/23/14 - 2.2 cm circumscribed LLL nodule -Bronchial washings/biopsies of LLL - 11/24/14 - negative -LLL Lobectomy/mediastinal LND - 12/22/14 - poorly diff spindle cell neoplasm - [id number] -PET/CT - 01/25/2015 - no evidence of distant metastatic disease -CT Thorax - 01/16/17 - new 4.2 cm lesions in right paraspinous musculature -Incisional biopsy of right posterior chest mass - 01/22/2017 - consistent with lung primary, poorly diff spindle cell neoplasm -PET/CT - 01/31/2017 FDG uptake in right posterior chest mass, otherwise negative for metastatic disease Status post thoracic surgeon consultation CHEST MRI 02/20/2017 right longissimus thoracic muscle mass Recommendation for preoperative radiation therapy Status post completion of radiation therapy to the right chest wall 04/11/2017 he received 5000 cGy Last Edited By: Peg Vann on Apr 20, 2017 16:00 (2) Prostate cancer Status: Resolved Onset Date: 03/15/2016 Permanent Comment: History of benign prostatic hypertrophy on Avodart Rising PSA to 2.310 which equals 4.6 to Status post ultrasound-guided biopsies 03/15/2016 [place] 4+3 Prostate volume 45.5 Prostate density 0.101 Status post completion of radiation therapy 09/28/2016. He received 7000 cGy utilizing hypo-fractionation Last Edited By: Peg Vann on October 11, 2016 10:14 History of Present Illness Mr. Leonardo is a 76-year-old male with a previous diagnosis of prostate cancer treated with radiation therapy in 2016 that is currently in remission. The patient also was previously diagnosed with a poorly differentiated malignant neoplasm involving the left lower lobe that was treated with a left lower lobectomy by Dr. Mckeon in December 2014 with no adjuvant therapy. More recently, the patient did presents with a right posterior chest wall mass that was biopsied by Dr. Mckeon 01/22/2017 which confirmed metastatic poorly differentiated malignant neoplasm consistent with his previous lung primary malignancy. The patient did undergo a PET/CT scan on 01/31/2017 which revealed no evidence of other distant metastatic disease beyond the right posterior chest wall mass. The patient was then seen by Dr. Jona Warren from medical oncology and myself from radiation oncology and we both recommended consideration of surgical resection. The patient's case was then discussed at the multidisciplinary oncology clinic's at [facility] in [place], [place]. Dr. Jones and Dr. 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 Given the location of the mass and potential complexity of surgery as well, they recommended preoperative radiation therapy. The patient underwent preoperative radiation therapy which completed at the end of March 2017. Interim History The patient underwent a CT of the chest on 04/18/2017 which revealed: "IMPRESSION: 1. Prior left lower lobectomy. No evidence of local disease recurrence 2. Heterogeneous mass of the right paraspinal musculature is again seen, 3.6 x 2.0 cm which demonstrated hypermetabolic activity on comparison PET CT suggesting metastatic lesion. 3. No pathologic adenopathy or evidence of bony metastasis. 4. Subsegmental groundglass opacities of the basal right lower lobe suspicious for mild pneumonitis on a background of atelectasis/scarring." The patient also underwent a CT of the abdomen/pelvis on 04/30/2017 which revealed: "IMPRESSION: 1. Small focal outpouching of contrast within the proximal posterior graft which raises the possibility of a type III endoleak. However, the aneurysm sac remains stable in size measuring 4.4 cm. 2. 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 3. No change in the focal occlusion of the distal left common femoral artery with reconstitution. 4. Additional findings as described above." The patient states that he is scheduled to undergo surgery on 05/15/[address] Rollins and Dr. Jones. Currently, the patient is doing relatively well overall. He states that he does feel the mass has decreased in size minimally. He states skin is doing well overall. He has no other complaints. Allergies Coded Allergies: Adhesives (Verified Allergy, Mild, RASH, 01/11/17) Latex (Verified Allergy, Unknown, UNKNOWN REACTION, 01/11/17) PER RECORDS Home Medications Scheduled Cholecalciferol (Vitamin D3), 1 TAB PO QAM Clobetasol Propionate (Clobetasol Propionate Cream 0.05%), 1 APPLN EXT Dailyprn Doxazosin Mesylate (Cardura), 2 MG PO HS Doxycycline Hyclate (Doxycycline Hyclate), 50 MG PO QAM Fluticasone Prop/Salmeterol (Advair Diskus 250/50 60 Dose), 2 PUFFS INH BID Lisinopril (Zestril), 10 MG PO DAILY Loratadine (Claritin), 10 MG PO DAILY Methimazole (Methimazole ), 5 MG PO QAM Naproxen (Aleve), 220 MG PO bidprn Pantoprazole (Protonix), 40 MG PO DAILY Rosuvastatin Calcium (Crestor), 20 MG PO QPM Tamsulosin Hcl (Flomax), 0.4 MG PO dailyprn [calcium], 600 MG PO TID Scheduled PRN Polyethylene Glycol-Propylene (Systane), 1 DROPS OP QID PRN for DRYNESS Review of Systems Gastrointestinal: Symptoms: WNL Oral: Symptoms: No Problems Respiratory: Symptoms: SOB With Exertion Urinary: Symptoms: Nocturia Comments: nocturia x0-2x Skin: Other Skin Symptoms: asymptomatic erythema Physical Exam Vital Signs Date Time Temp Pulse Resp B/P (MAP) Pulse Ox O2 Delivery O2 Flow Rate FiO2 05/09/17 08:00 36.9 76 20 116/72 95 General Appearance: WD/WN, no apparent distress Eyes: normal inspection ENT: normal ENT inspection Neck: supple, no adenopathy Respiratory/Chest: chest non-tender, lungs clear, normal breath sounds, no respiratory distress, + pertinent finding (Mass palpable in the right flank/ chest wall, still fixed. Mild erythema noted. Skin is dry. No dry/moist desquamation. ) Cardiovascular: regular rate, rhythm, no edema, no gallop, no JVD Abdomen: normal bowel sounds, non tender, soft, no organomegaly Extremities: normal range of motion, non-tender Neurologic/Psychiatric: voting machine repairer II-XII nml as tested, alert, oriented x 3 Skin: normal color, warm/dry Pain Management Patient Reports Pain: No Initial Pain Intensity: 0.0 Level of Consciousness: Spontaneously Alert Pain Intervention: See MAR Pain Management Plan Patient has no pain, no pain management plan is required. Laboratory Laboratory Results: not applicable Pathology Pathology Results: not applicable Imaging Imaging Studies: were reviewed, and pertinent findings noted in HPI Assessment & Plan (Attending) Mr. 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 The patient recently underwent a course of preoperative radiation therapy which completed in March 2017 for a potential resection which is scheduled on 05/[address] Rollins and Dr. Mcclendon. Overall, the patient is doing relatively well with respect to his previous course of radiation therapy. We would like to see him back in 6 months for follow-up evaluation. The patient will continue to also follow with Dr. Jona Warren from medical oncology. We can see the patient back earlier if needed. The patient was encouraged to call us with any further questions or concerns. Total Time (Attending) In Follow-Up I spent 20 minutes examining and counseling the patient. I spent 15 minutes completing this note. CAREER DEVELOPMENT COUNSELOR Copy To Rivera Rollins M.D.; Rivera Rollins M.D.; Ranjith Jones M.D.; Jona Warren M.D.; Filomena Fishman, Michael
== END | disposition home or self-care (01) ==
LOC: C.ONC 07:55
PROVIDERS: ATTEND Physician Assistant Medical
DX: Z08 Encounter for follow-up examination after completed treatment for malignant neoplasm (principal); Z92.3 Personal history of irradiation; Z85.46 Personal history of malignant neoplasm of prostate; R91.1 Solitary pulmonary nodule

== ENCOUNTER → 2017-07-27 | Outpatient (CLI) | payer OTHER ==
[~2017-07-27] MED LIST changes: -ASPI81TA28 PO; -CALC500C70 PO
== END | disposition home or self-care (01) ==
LOC: C.RDSM 10:24
PROVIDERS: ATTEND Orthopaedic Surgery
DX: M25.552 Pain in left hip (principal)

== ENCOUNTER → 2017-08-07 | Outpatient (CLI) | payer OTHER | END | disposition home or self-care (01) | LOC: C.LAB 12:56 | PROVIDERS: ATTEND Urology | DX: R39.9 Unspecified symptoms and signs involving the genitourinary system (principal) ==

== ENCOUNTER → 2017-08-10 | Outpatient (CLI) | payer OTHER | END | disposition home or self-care (01) | LOC: C.LABSPEC 14:58 | PROVIDERS: ATTEND Urology | DX: R39.9 Unspecified symptoms and signs involving the genitourinary system (principal); S72.102A Unspecified trochanteric fracture of left femur, initial encounter for closed fracture; X58.XXXA Exposure to other specified factors, initial encounter ==

== ENCOUNTER → 2017-08-10 | Outpatient (CLI) | payer OTHER | END | disposition home or self-care (01) | LOC: C.RDSM 10:30 | PROVIDERS: ATTEND Orthopaedic Surgery | DX: S72.102A Unspecified trochanteric fracture of left femur, initial encounter for closed fracture (principal); X58.XXXA Exposure to other specified factors, initial encounter ==

== ENCOUNTER → 2017-09-04 | Outpatient (CLI) | payer OTHER | END | disposition home or self-care (01) | LOC: C.RDSM 09:20 | PROVIDERS: ATTEND Orthopaedic Surgery | DX: T14.8XXA Other injury of unspecified body region, initial encounter (principal); X58.XXXA Exposure to other specified factors, initial encounter ==

== ENCOUNTER → 2017-12-14 | Day surgery (SDC) | payer OTHER ==
[~2017-12-14] VITALS: Ht 180.3 cm; Wt 77.5 kg
[~2017-12-14] MED LIST changes: +ASPI81TA28 PO; +CALC500C70 PO; +CEFAZOLIN 1000MG IV PUSH 7.5 ML IV SCH; -CLR10 PO; +FENTANYL CITRATE INJ 50 MCG/1 ML 2 ML VIAL IV ONE; +FENTANYL CITRATE INJ 50 MCG/1 ML 2 ML VIAL ONE; +HEPARIN SOD (PORCINE) 1000 UNIT/ML 10 ML VIAL ONE; +IODIXANOL (VISIPAQUE) 270 MG/ML 150ML IV ONE; +LIDOCAINE HCL 1% 20 ML VIAL SQ ONE; +MIDAZOLAM HCL 1 MG/ML 2ML VIAL IV ONE; +MIDAZOLAM HCL 1 MG/ML 2ML VIAL ONE; +OXYCODONE/ACETAMINOPHEN 5-325 TAB PO PRN; +PATIENT'S HEIGHT AND/OR WEIGHT NEEDED SCH; +SODIUM CHLORIDE 0.9% 1000ML 1,000 ML IV SCH
--- NOTE | 2017-12-14 05:40 | History and Physical ---
History & Physical Date of Service Dec 14, 2017. History & Physical CC: Type I endoleak HPI: I had the pleasure of seeing Ashwin Leonardo today for follow-up. As you know he had an ultrasound of his aortic endograft was suggested a type I leak with a slightly enlarging sac. He underwent a CTA and is here for the results. He is asymptomatic from a leak at this time. His aneurysm endograft was done in August 2009. The CTA does show increase in sac size as well as a Type I endoleak. Allergies are none known. Medications include albuterol, aspirin, Avodart, Cardura, Dulcolax, omeprazole, lisinopril, naproxen, methimazole, simvastatin and vitamin D3. Past medical history is positive for hypertension, carotid artery occlusive disease and aortic aneurysms. Previous surgeries tonsillectomy, aneurysm repair which was done with endograft. Family history is positive for heart disease and cancer. Social History: He quit smoking in 2001. He drinks beer once a week on occasion. Review of Systems: Entire review of systems was asked. The only complaints are occasional tingling and pain in his legs when walking. This occurs on rare occasion. Physical Exam: Patient is awake and oriented x3. He is in no apparent distress. Normal body habitus. Blood pressure is 164/82 in the left, 162/82 in the right. Head and neck are within normal limits. There are no carotid bruits. Lungs are clear. Heart regular rate and rhythm. Abdominal exam is benign. No aneurysmal dilatation was appreciated. On vascular exam his carotids and temporal pulses are +2 bilaterally. Femorals and pedals are +2 bilaterally. Neurologic exam is intact to motor and sensory function. Impression: Post abdominal aortic endograft repair of abdominal aortic aneurysm. Type I endoleak Carotid artery disease. Plan and Recommendations: Patient is admitted for aortography to better define the leak. I have discussed the risks options and benefits of the procedure with the patient. The patient understands the risks options and benefits and agrees to the procedure.
[2017-12-14 08:37] VITALS: BP 170/88; PULSE 58; O2SAT 96; Ht 180.3 cm; Wt 77.5 kg
--- NOTE | 2017-12-14 09:40 | History & Physical Bridge Note ---
H&P Re-Evaluation Bridge Note: I have examined the patient, reviewed the History & Physical and in the interval since the performance of the History & Physical I have noted the following changes of clinical significance: No changes noted
--- NOTE | 2017-12-14 10:03 | Pre Sedation Assessment ---
Pre Sedation Assessment General Date of Sedation: Dec 14, 2017. Vital Signs Past 12 Hours Date Time Temp Pulse Resp B/P (MAP) Pulse Ox O2 Delivery O2 Flow Rate FiO2 12/14/17 08:37 58 18 170/88 (115) 96 Room Air Pre-Sedation Airway Assessment Smoking Status: Former Smoker Hx of Sleep Apnea: No Short Thick Neck: No Thyro-mental Distance: > 3 Finger Breadths Oral Cavity: WNL Mallampati Classification: Class II ASA Classification: Class III NPO Status Date of Last Intake of Fluids: Dec 13, 2017 Time of Last Intake of Fluids: 2099 Date of Last Intake of Solids: Dec 13, 2017 Time of Last Intake of Solids: 2099 Procedure Planning Contraindications for Sedation: None Current Medications Reviewed: Yes Notes The planned sedation has been discussed with the patient. Informed Consent was obtained. I have identified the patient, determined the appropriateness of sedation and have assessed the patient immediately prior to the procedure. All medicine(s) and interventions are by my order.
--- NOTE | 2017-12-14 11:25 | [facility] Post Operative Brief Note ---
Immediate Operative Summary Operative Date Dec 14, 2017. Pre-Operative Diagnosis Type 1 Endograft Leak Post-Operative Diagnosis Type I Endograft Leak Procedure(s) Performed Aortogram, Mechanical Closure, Moderate Sedation From [address] Donnelly Content Curator Surgeon(s) Lay Madison MD Estimated Blood Loss 5 Findings Consistent with Post-Op Diagnosis Specimens None Anesthesia Type IV Sedat Cons RN Only Complication(s) none Disposition Accompanied Pt To Recover: no Disposition: Recovery Room / PACU
--- NOTE | 2017-12-14 11:34 | Discharge Instructions ---
Discharge Instructions Date of Service Dec 14, 2017. Visit Reason for Visit: Type 1 Endoleak Discharge Discharge Diagnosis / Problem: Type I endoleak Discharge Goals Goal(s): Diagnostic testing Activity Recommendations Activity Limitations: per Instructions/Follow-up section Anesthesia . Post Anesthesia Instructions: If you have had General Anesthesia or IV Sedation: * Do not drive today. * Resume driving when surgeon permits. * Do not make important decisions or sign legal documents today. * Call surgeon for: 1. Temperature elevations greater than 101 degrees F. 2. Uncontrollable pain. 3. Excessive bleeding. 4. Persistent nausea and vomiting. 5. Medication intolerance (nausea, vomiting or rash). * For nausea and vomiting use only clear liquids such as: tea, soda, bouillon until nausea subsides, then gradually increase diet as tolerated. * If you have any concerns or questions, call your surgeon's office. If physician is unavailable and it is an emergency, call 911 or go to the nearest emergency room. . Instructions / Follow-Up Instructions / Follow-Up Call [phone] to schedule a follow up appointment if one not already scheduled. SPECIAL CARE INSTRUCTIONS: Medications: * Continue to take your medications as directed. If you have been given a prescription for Plavix, please fill it immediately and take as directed. Incision Care: * Your puncture site may have some bruising and minor swelling for about one week. * You will have a small dressing covering your puncture site. You may remove the dressing after 24 hours and shower. You may let the warm soapy water run over it, but be sure to dry the puncture site well and keep it dry. * DO NOT IMMERSE THE INCISION IN A TUB/POOL/etc. UNTIL HEALED. * Puncture sites should be kept covered with a band-aid until it begins to heal. Restrictions: * Depending on whether you leg or arm was punctured to access the arteries, you will be required to lay flat, hold your arm still, or both, for about 4 hours after the procedure to prevent bleeding. * Limit your activity for the first 48 hours. You may walk and go up and down steps. Avoid excessive bending or movement at the puncture site. Possible Complications: * Excessive Swelling - after blood flow is improved you may notice increased swelling in the lower legs. This is a normal response. This usually depends on the amount of blockages in the leg, how long they have been there prior to your procedure and how much blood flow was restored. Elevating your legs will help to improve this. Please notify our office ([phone] ) if the swelling does not go away after lying in bed overnight. * Infection/Drainage/Bleeding - Drainage or bleeding from the puncture site should be minimal. If you have excessive bleeding or drainage, call our office ([phone]) right away. * Pain - You may experience some mild pain or soreness at your puncture site. If your pain does not improve, please contact our office ([phone]). Call your doctor and seek emergent treatment if you develop: * Temperature above 101 degrees * Any fever or chills * Any redness or purulent drainage from the puncture site * Any new dusky/blue colored toes or feet with coolness or sharp or aching pain. SKIN IRRITATION: * You may experience some redness and/or swelling in the area where radiation was administered. If any skin irritation occurs, please contact your family physician. FOLLOW UP VISIT: Keep any scheduled doctor appointments. Diet Recommendations Recommended Home Diet: resume previous diet Procedures Procedures Performed: Aortogram, Mechanical Closure, Moderate Sedation From 1053 to Pending Studies Studies pending at discharge: no Medical Emergencies . Who to Call and When: Medical Emergencies: If at any time you feel your situation is an emergency, please call 911 immediately. . Non-Emergent Contact Non-Emergency issues call your: Surgeon . . "Provider Documentation" section prepared by Andrés Donnelly. .
--- NOTE | 2017-12-14 11:39 | Post Sedation Assessment ---
Post Sedation Assessment General Date of Sedation Dec 14, 2017. Vital Signs: Vital Signs Past 12 Hours Date Time Temp Pulse Resp B/P (MAP) Pulse Ox O2 Delivery O2 Flow Rate FiO2 12/14/17 11:33 62 18 157/70 96 Room Air 12/14/17 11:28 62 18 150/80 100 Oxymask 2 12/14/17 11:23 61 14 154/75 100 Oxymask 2 12/14/17 11:18 61 15 152/71 100 Oxymask 2 12/14/17 11:13 58 17 162/69 100 Oxymask 2 12/14/17 11:08 58 14 151/71 100 Oxymask 2 12/14/17 11:03 58 14 148/76 100 Oxymask 2 12/14/17 10:58 58 17 162/72 100 Oxymask 2 12/14/17 10:53 61 17 159/75 100 Oxymask 2 12/14/17 10:41 57 16 155/78 100 Oxymask 2 12/14/17 08:37 58 18 170/88 (115) 96 Room Air Post Procedure Recovery Score Activity: (2) Moves 4 extremities * Respiration: (2) Deep breath/cough Circulation: (2) +/-20% PreAnes Value Consciousness: (2) Fully Awake Oxygen Saturation: (2) > 92% On Room Air Post Anesthesia Score: 10 Discharge Sedation Level of Care: Fast Track Phase II Post Sedation Plan On clinical assessment, the patient appears to have tolerated the sedation without complications. Patient is recovering as anticipated. Patient will continue to be monitored by nursing and may be discharged when sedation discharge criteria are met per below protocol. Upon Completions of procedure and additional 15 minutes continue every 5 minute vital signs and the P.A.R. score; then discharge to a Phase I or Fast Track to Phase II per the following guidelines: * Discharge Patient to appropriate Phase II area if PAR is 8 or greater or return to pre- procedure baseline. The post - procedure orders will be as directed. * If PAR score is less than 8 or not return to pre-procedure baseline then patient will follow Phase I monitoring till PAR is reached for Phase II. The Phase I may be done in procedure room or may call to secure a Phase I area. * If naloxone or flumazenil are used for reversal, hold in Phase I for an additional 60 -120 minutes before discharge to Phase II. Please call the Sedation Physician to re-evaluate and complete post-note for discharge to Phase II area. Do NOT discharge from procedure sedation or Phase 1 until post- sedation evaluation note is complete by procedure /sedation MD Sedation Discharge Instructions to be given to the patient at discharge to home.
[2017-12-14 11:45] VITALS: BP 178/74; PULSE 60; TEMP 36.6; O2SAT 99
[2017-12-14 12:15] VITALS: BP 169/70; PULSE 59; TEMP 36.6; O2SAT 99
--- NOTE | 2017-12-14 12:16 | [facility] Operative Report ---
Operative Report Operative Date Dec 14, 2017. Pre-Operative Diagnosis Type 1 Endograft Leak Post-Operative Diagnosis Type I Endograft Leak Procedure(s) Performed Aortogram, Mechanical Closure, Moderate Sedation From [address] Donnelly Registered Massage Therapist Surgeon(s) Lay Madison MD Estimated Blood Loss 5 Specimens None Anesthesia Type IV Sedat Cons RN Only Complication(s) none Disposition no Recovery Room / PACU Indications Mr. Leonardo is a 77 year old male with a history of abdominal aortic aneurysm who previously underwent an EVAR and was found to have increasing size of his aneurysm concerning for an endoleak. Description of Procedure Patient was taken to the angiogram suite and placed in the supine position. After the right groin was prepped and draped in a sterile manner local anesthetic was administered. A percutaneous puncture was made in the right common femoral artery under ultrasound guidance. A 5 Polish sheath was inserted. A .035 angled glidewire was inserted through the prior endograft followed by a 5 Polish pigtail. Aortogram was completed with power injection with evidence of a Type 1 endoleak. The pigtail catheter and guidewire were removed. The Starclose was used to close the common femoral artery without difficulty. Pressure was applied to the puncture site and hemostasis was obtained. The patient tolerated the procedure well with no apparent complications. He left the angio suite in good condition. Dr. Donnelly was present and scrubbed for the entirety of the procedure I attest to the content of the Intraoperative Record and any orders documented therein. Any exceptions are noted below.
[2017-12-14 12:45] VITALS: BP 143/82; PULSE 58; TEMP 36.6; O2SAT 97
[2017-12-14 13:45] VITALS: BP 133/79; PULSE 60; TEMP 36.6; O2SAT 99
== END | disposition home or self-care (01) ==
LOC: C.ACU 07:52
PROVIDERS: ATTEND Surgery Vascular Surgery
DX: T82.898A Other specified complication of vascular prosthetic devices, implants and grafts, initial encounter (principal); Y83.8 Other surgical procedures as the cause of abnormal reaction of the patient, or of later complication, without mention of misadventure at the time of the procedure; I65.29 Occlusion and stenosis of unspecified carotid artery; Z87.891 Personal history of nicotine dependence

== ENCOUNTER → 2017-12-21 | Outpatient (CLI) | payer OTHER ==
[~2017-12-21] MED LIST changes: -CEFAZOLIN 1000MG IV PUSH 7.5 ML IV SCH; -FENTANYL CITRATE INJ 50 MCG/1 ML 2 ML VIAL IV ONE; -FENTANYL CITRATE INJ 50 MCG/1 ML 2 ML VIAL ONE; -HEPARIN SOD (PORCINE) 1000 UNIT/ML 10 ML VIAL ONE; -IODIXANOL (VISIPAQUE) 270 MG/ML 150ML IV ONE; -LIDOCAINE HCL 1% 20 ML VIAL SQ ONE; -MIDAZOLAM HCL 1 MG/ML 2ML VIAL IV ONE; -MIDAZOLAM HCL 1 MG/ML 2ML VIAL ONE; -OXYCODONE/ACETAMINOPHEN 5-325 TAB PO PRN; -PATIENT'S HEIGHT AND/OR WEIGHT NEEDED SCH; -SODIUM CHLORIDE 0.9% 1000ML 1,000 ML IV SCH; -calcium PO
== END | disposition home or self-care (01) ==
LOC: C.LAB 08:38
PROVIDERS: ATTEND Internal Medicine Endocrinology, Diabetes & Metabolism
DX: E05.90 Thyrotoxicosis, unspecified without thyrotoxic crisis or storm (principal)